=== PATIENT | male | born 1955 | race Caucasian/White ===

== ENCOUNTER 2019-04-22 11:56 | Emergency (ER) | payer BC, SELFPAY ==
[2019-04-22 12:06] VITALS: BP 163/88; PULSE 96; RESP 18; TEMP 36; O2SAT 97
[2019-04-22] MEDS: LORazepam 0.5 MG TAB PO (13:23)
[2019-04-22 13:35] LABS: Abs Immature Grans 0.12 k/cumm (0.0-0.09); Absolute Basophil Count 0.02 k/cumm (0.0-0.2); Absolute Lymphocyte Count 1.17 k/cumm (1.2-3.4); Absolute Monocyte Count 0.62 k/cumm (0.11-0.7); Absolute Neutrophil Count 6.44 k/cumm (1.2-6.7); Basophils % 0.2; HCT 41.2 % (40.0-50.0); HGB 14.6 g/dL (13.5-17.5); Immature Grans % 1.4; Mean Corp. HGB Concentration 35.4 g/dL (32.0-36.0); Mean Corpuscular Hemoglobin 33.6 pg (27.0-33.0); Mean Corpuscular Volume 94.9 fL (80-95); Monocytes % 7.4; Platelet Count 275 x1000/uL (130-400); RBC 4.34 m/cumm (4.50-6.00); RBC Distribution Width 12.7 % (11.8-14.1); White Blood Cell Count 8.37 k/cumm (4.4-10.8)
[2019-04-22 13:46] LABS: ALT 38 U/L (12-78); AST 20 U/L (15-37); Alkaline Phosphatase 61 U/L (46-116); Anion Gap 12.4 mmol/L (3-11); BUN 14 mg/dL (7-18); Bilirubin, Total 0.5 mg/dL (0.2-1.0); CO2 23.6 mmol/L (21.0-32.0); CREATININE 0.84 mg/dL (0.70-1.30); Calcium 8.6 mg/dL (8.5-10.1); Chloride 101 mmol/L (98-107); Glucose 121 mg/dL (70-100); Potassium 3.8 mmol/L (3.5-5.1); Sodium 137 mmol/L (136-145); Total Protein 7.4 g/dL (6.4-8.2)
--- NOTE | 2019-04-22 14:18 | ED.GENADUL_ITS ---
Discharge Plan Disposition Patient Disposition: HOME Condition: Stable Discharge Details Chief Complaint: Anxiety Clinical Impression: Adverse effects of medication Primary Care Provider: Graciela,Local ED Provider: Yonathan Peter Home Meds and New Rx's Prescriptions: New lorazepam [Ativan] 0.5 mg tablet 0.5 mg PO Q8H PRN (Reason: anxiety) Qty: 3 RF: 0 Continued amlodipine 10 MG tablet 10 mg PO DAILY RF: 0 montelukast 10 MG tablet 10 mg PO DAILY RF: 0 magnesium chloride [Mag 64] 64 MG tablet,delayed release (DR/EC) 1 tab PO DAILY RF: 0 hydrochlorothiazide 12.5 mg Tablet 12.5 mg PO DAILY RF: 0 Discontinued prednisone 10 mg Tablet 10 mg PO DAILY RF: 0 Discharge Instructions Instructions: Prednisone (By mouth) Additional Instructions: Feel free to return to the emergency department for any new or significant worsening of symptoms otherwise you should take 5 mg of prednisone tomorrow morning and the next morning and then stop this medication. Also stop the jjwr-[id number] medication that you have been taking as this may also have caused your symptoms. Follow-up with your primary care provider for reassessment and any change in long-term medications as needed Referrals: Primary Care Provider [Outside] Discharge Data Discharge Date/Time-TO BE ENTERED AT DEPARTURE: 04/22/19 14:35 Medical Decision Making Patient presenting the emergency department for chief complaint of anxiety, and agitation. Patient states that he has severe seasonal allergies and sees an service observer chief in [place] and has been prescribed prednisone due to his allergies. Patient arrived in the area on Monday and had not taken any prednisone for 3 to 4 days and then started taking this prednisone 10 mg once or twice daily and is taken 10 mg just in the morning for the past 2 days. Since starting the prednisone he has noticed severe anxiety, agitation, irritability and mood swings. Patient denies any pain or discomfort or any medical complaints at this time. Physical exam is unremarkable. Patient does state that he has not taken his prednisone as prescribed as he has used it intermittently, sometimes in the morning and night, sometimes 3 tablets a day, sometimes 2 tablets a day. He does also state that he has been using an [id number] allergy/ congestion medication but is not sure exactly which one, he states he just calls it Mucinex. Plan to check labs due to intermittent use of prednisone and concern for adrenal suppression but more suspect this adverse effect from steroid. Pending results patient given 0.5 mg of Ativan. Review of labs shows non-worrisome CBC and CMP with no hyponatremia, no hypokalemia, no hypoglycemia no hypotension. Patient does have mildly elevated anion gap but otherwise nondiagnostic labs. Patient states that he feels significantly better after receiving medication. Patient was informed that he should taper his prednisone over the next couple days and given that he stated 10 mg daily for the last 2 to 3 days he was informed to use 5 mg daily for the next 2 days and then stop this medication. Patient to return the emergency department for new or worsening symptoms otherwise follow-up with primary care provider as needed for reassessment. Patient was prescribed 3 tablets of 0.5 mg of Ativan to be used as needed. After discussion of diagnosis and plan of care patient has no further needs, questions, or concerns and states clear understanding to return to the emergency department for any worsening symptoms. HPI General Mode of arrival: ambulatory . Date/Time Provider Initiated Documentation: 04/22/19 12:19 . Limitations to Documentation: no limitations . Information obtained by: patient, family and RN notes reviewed . History of Present Illness 63 year old M presents to the emergency department with the chief complaint of anxiety, described as moderate, Quality is described as other (denies pain), Patient started experiencing this day(s) (3) and it has been intermittent. No relieving factors improve symptom(s), Patient notes no other symptoms.. Patient did receive the following treatments prior to arrival, none Related Data Home Medications Medication Instructions Recorded Confirmed amlodipine 10 mg PO DAILY 10/30/16 04/22/19 magnesium chloride [Mag 64] 1 tab PO DAILY 10/30/16 04/22/19 montelukast 10 mg PO DAILY 10/30/16 04/22/19 hydrochlorothiazide 12.5 mg PO DAILY 04/22/19 04/22/19 lorazepam [Ativan] 0.5 mg PO Q8H PRN #3 tab 04/22/19 Previous Rx's Medication Instructions Recorded lorazepam [Ativan] 0.5 mg PO Q8H PRN #3 tab 04/22/19 Allergies Allergy/AdvReac Type Severity Reaction Status Date / Time No Known Allergies Allergy Unverified 04/22/19 12:10 General Stated Complaint: Anxiety AGUSTIN: 4 Review of Systems Constitutional Denies fever(s) Cardiovascular Denies chest pain, Denies irregular heart rhythm and Denies dyspnea Respiratory Denies cough and Denies dyspnea Gastrointestinal Denies abdominal pain, Denies diarrhea, Denies nausea and Denies vomiting Neurologic Denies behavioral changes Psychiatric Reports as per HPI, Reports anxiety, Denies behavioral changes, Denies change in appetite, Denies auditory hallucinations, Denies visual hallucinations, Denies homicidal ideation and Denies suicidal ideation [facility] Social History Smoking/Tobacco Use Status: Current-Occasional Tobacco Type: cigars Drug use: Never Substance use type: does not use Do you feel safe in your relationship?: Yes Exam Const General: cooperative Orientation: alert, awake and oriented x3 Limitations: mental status not altered HENMT Head: normal to inspection, normocephalic and atraumatic Ears: hearing grossly normal bilaterally Mouth: moist mucous membranes Eyes General: appearance normal, both eyes and all related structures Pupils: PERRL EOM: EOM intact bilaterally Resp Effort & Inspection: normal respiratory effort, able to speak in complete sentences and no respiratory distress Auscultation: clear to auscultation bilaterally Cardio Rate: regular rate and not tachycardic Rhythm: regular rhythm Heart Sounds: S1 normal, S2 normal, no click, no gallops, no murmurs and no rubs Neuro General: alert, awake, oriented x3, gait normal, moves all extremities and no focal motor deficits Cognition: normal cognition Speech: speech normal Psych Appearance: grossly normal Mental Status: mental status grossly normal Speech and Movement: speech and movement normal and speech clear Mood: congruent mood Affect: normal affect Attitude: cooperative Thought Process: normal Thought Content: normal Insight: insight good Judgment: judgment good Course Vital Signs Temperature 36 C L 04/22/19 12:06 Pulse 96 H 04/22/19 12:06 Respiratory Rate 18 04/22/19 12:06 Blood Pressure 163/88 H 04/22/19 12:06 Pulse Oximetry 97 04/22/19 12:06 Temperature 36 C L 04/22/19 12:06 Temperature Source Skin 04/22/19 12:06 Pulse 96 H 04/22/19 12:06 Respiratory Rate 18 04/22/19 12:06 Respiratory Effort Non-Labored 04/22/19 12:12 Respiratory Depth Normal 04/22/19 12:12 Respiratory Pattern Normal 04/22/19 12:12 Blood Pressure 163/88 H 04/22/19 12:06 Pulse Oximetry 97 04/22/19 12:06 Oxygen Delivery Method Room Air 04/22/19 12:06 Oxygen Flow Rate 0 04/22/19 12:06 Pain Level 0 04/22/19 12:06 Lab/Test Results Lab/Test Results: Laboratory Tests Range/Units 04/22/19 04/22/19 13:26 13:26 WBC (4.4-10.8) k/cumm 8.37 RBC (4.50-6.00) m/cumm 4.34 L Hgb (13.5-17.5) g/dL 14.6 Hct (40.0-50.0) % 41.2 MCV (80-95) fL 94.9 MCH (27.0-33.0) pg 33.6 H MCHC (32.0-36.0) g/dL 35.4 RDW (11.8-14.1) % 12.7 Plt Count (130-400) x1000/uL 275 MPV (8.0-11.0) fL 10.0 Immature Gran % 1.4 Neutrophils % 77.0 Lymphocytes % 14.0 Monocytes % 7.4 Eosinophils % 0.0 Basophils % 0.2 Absolute Neutrophils (1.2-6.7) k/cumm 6.44 Absolute Lymphocytes (1.2-3.4) k/cumm 1.17 L Absolute Monocytes (0.11-0.7) k/cumm 0.62 Absolute Eosinophils (0.0-0.7) k/cumm 0.00 Absolute Basophils (0.0-0.2) k/cumm 0.02 Sodium (136-145) mmol/L 137 Potassium (3.5-5.1) mmol/L 3.8 Chloride (98-107) mmol/L 101 Carbon Dioxide (21.0-32.0) mmol/L 23.6 Anion Gap (3-11) mmol/L 12.4 H BUN (7-18) mg/dL 14 Creatinine (0.70-1.30) mg/dL 0.84 Estimated GFR/1.73 m2 (mL/min/1.73m2) >= 60.00 Glucose (70-100) mg/dL 121 H Calcium (8.5-10.1) mg/dL 8.6 Total Bilirubin (0.2-1.0) mg/dL 0.5 AST (15-37) U/L 20 ALT (12-78) U/L 38 Alkaline Phosphatase (46-116) U/L 61 Total Protein (6.4-8.2) g/dL 7.4 Albumin (3.4-5.0) g/dL 4.0
== END 2019-04-22 14:35 | disposition home or self-care (01) ==
PROVIDERS: Emergency Provider Nurse Practitioner Family
DX: F41.9 Anxiety disorder, unspecified (principal); T38.0X6A Underdosing of glucocorticoids and synthetic analogues, initial encounter
CPT/HCPCS: 36415; 80053; 99283; 85025

== ENCOUNTER 2021-01-28 13:04 | Emergency (ER) | payer MEDICARE, BC, SELFPAY ==
[2021-01-28 13:10] VITALS: BP 169/91; PULSE 85; RESP 18; TEMP 36.4; O2SAT 98
--- NOTE | 2021-01-28 13:30 | DI.RAD_ITS ---
EXAM: XR HIP RT COMPLETE AP PELVIS CLINICAL HISTORY: Skiing accident.. TECHNIQUE: 2D digital imaging was performed. COMPARISON: No exams were available for comparison FINDINGS: BONES: No acute fracture is present. No bony destructive lesion is seen. JOINTS: No dislocation present. Marked arthritis of the right hip. Moderately severe arthritis of th e left hip. SOFT TISSUE: Normal. IMPRESSION: No acute fracture or dislocation. DATA REPOSITORY: RADIATION DOSE DELIVERED:
--- NOTE | 2021-01-28 13:30 | DI.CT_ITS ---
EXAM: CT HEAD CERVICAL SPINE WO CLINICAL HISTORY: Skiing accident. TECHNIQUE: Imaging Protocol: Axial computed tomography images with coronal and sagittal reformatted images were created and reviewed COMPARISON: No exams were available for comparison FINDINGS: There is artifact in the posterior fossa from the patient's dental amalgam. CT Head: Ventricles and Extra axial spaces: Normal in size and morphology for the patient's age. Hemorrhage: None. Cerebral parenchyma: Normal. There is no evidence of an acute territorial infarct. Midline shift: None. Brainstem/Cerebellum: Normal. Calvarium: Normal. Visualized Paranasal sinuses/Mastoids: There are mucous retention cysts or polyps in the maxillary si nuses bilaterally. There is mild mucosal thickening in the ethmoid air cells and frontal sinuses. T he remaining visualized paranasal sinuses and mastoid air cells are clear. Soft Tissues: Unremarkable. CT Cervical Spine: Bones: No acute fracture or subluxation. Moderate to severe degenerative changes are seen in the cerv ical spine. Soft Tissues: Unremarkable. Lung Apices: Clear. IMPRESSION: 1. No acute intracranial process. 2. No acute fracture or subluxation in the cervical spine. 3. Findings were discussed with the emergency department on the date of the examination. RADIATION DOSE DELIVERED: 1,601.48mGy.cm Total DLP DATA REPOSITORY: All CT scans at this facility are submitted to the National Radiology Data Registry (NRDR) Dose Index Registry (DIR) with the [employer] (ACR). RADIATION OPTIMIZATION: All CT scans at this facility use at least one of these dose optimization te chniques: automated exposure control; mA and/or kV adjustment per patient size (includes targeted exa ms where dose is matched to clinical indication); or iterative reconstruction.
--- NOTE | 2021-01-28 13:30 | RT.EKG_ITS ---
APPROVED REPORT Exam: Resting ECG Patient Location: E HR:79 bpm ECG Measurements Heart Rate 79 AXIS WI 167 P 7 QRSd 100 QRS 47 QT 394 T 86 QTc 453 Conclusion Sinus rhythm...normal P axis, V-rate 60- 99 I have reviewed and interpreted ECG and agree with software generated interpretation.
--- NOTE | 2021-01-28 13:35 | DI.RAD_ITS ---
EXAM: XR CHEST 1V IN DI DEPT CLINICAL HISTORY: Skiing accident TECHNIQUE: 2D digital imaging was performed. COMPARISON: No exams were available for comparison FINDINGS: MEDIASTINUM: Normal. HEART: Normal. PULMONARY VASCULATURE: Normal. LUNGS: Clear. PLEURAL SPACE: No pleural effusion or pneumothorax. BONE:Within normal limits for the patient's age. OTHER FINDINGS:Normal. IMPRESSION: No acute pulmonary findings. DATA REPOSITORY: RADIATION DOSE DELIVERED:
[2021-01-28 13:59] LABS: Abs Immature Grans 0.12 10^3/uL (0.0-0.06); Absolute Basophil Count 0.05 10^3/uL (0.0-0.2); Absolute Eosinophil Count 0.11 10^3/uL (0.0-0.7); Absolute Lymphocyte Count 1.96 10^3/uL (1.2-3.4); Absolute Monocyte Count 0.65 10^3/uL (0.1-0.8); Absolute Neutrophil Count 6.55 10^3/uL (1.2-6.7); Basophils % 0.5; Eosinophils % 1.2; HCT 42.1 % (40.0-50.0); HGB 14.2 g/dL (13.5-17.5); Immature Grans % 1.3; Lymphocytes % 20.8; MCH 32.1 pg (27.0-33.0); MCHC 33.7 % (32.0-36.0); MCV 95.2 fL (80-95); MPV 10.1 fL (8.0-11.0); Monocytes % 6.9; Neutrophils % 69.3; Nucleated RBC 0 %; Platelet Count 302 10^3/uL (130-400); RBC 4.42 10^6/uL (4.36-5.78); RDW 12.3 % (11.8-14.1); RDW-SD 43.2 fL; WBC 9.44 10^3/uL (4.4-10.8)
--- NOTE | 2021-01-28 14:05 | W.ED.GENAD ---
Discharge Plan Disposition Patient Disposition: HOME Condition: Stable Discharge Details Clinical Impression: Head injury, closed, with LOC of unknown duration Primary Care Provider: Graciela,Local ED Provider: John Rasmussen Home Meds and New Rx's Prescriptions: Continued amlodipine 10 MG tablet 10 mg PO DAILY RF: 0 montelukast 10 MG tablet 10 mg PO DAILY RF: 0 magnesium chloride [Mag 64] 64 MG tablet,delayed release (DR/EC) 1 tab PO DAILY RF: 0 hydrochlorothiazide 12.5 mg Tablet 12.5 mg PO DAILY RF: 0 lorazepam [Ativan] 0.5 mg tablet 0.5 mg PO Q8H PRN (Reason: anxiety) Qty: 3 RF: 0 Discharge Instructions Instructions: Head Injury (ED) Additional Instructions: At this time your evaluation in the ER does not reveal any obvious emergent process. Please watch for new or worsening symptoms and return to the ER for any concerns. [id number] Tylenol as directed for discomfort. Cool compresses as tolerated. I do understand that you are here in the short-term visiting from [place], I do strongly recommend following up with your primary care provider when you return home to [place]. Medical Decision Making This is a 65-year-old male who presents status post a skiing injury. He tells me that he recalls the skis getting tangled up but cannot recall exactly why he fell. He does not believe he was symptomatic prior to the injury. The accident occurred around 1030 this morning. He was wearing a helmet but from what his friend tells him he believes he had a less than 90 seconds LOC. Patient was able to ski after the accident. He complains of a mild dull global headache now, and mild right hip-pelvis discomfort. Patient is up here for the next few weeks from [place] where he has primary care. This certainly sounds as though this was mechanical in nature however because he cannot recall the exact details, I do believe a cardiac work-up is reasonable. Will obtain CT imaging of his head and C-spine, x-ray of the chest and pelvis. Patient appears well, nontoxic, no acute distress. He is neurologically intact. The injury occurred at 1030 and therefore I believe a single troponin is reasonable given his initial troponin here in the ER will be drawn 3 hours [address] the episode. CT imaging of the head and C-spine read as negative per radiology. C-collar removed. Patient was ambulatory without difficulty. He remains neurologically intact, blood pressure is trending downward. Laboratory values are unremarkable for any obvious emergent process, troponin is less than 0.05. X-ray of chest and pelvis read by radiology is unremarkable. Patient was observed in the ER for over 2-1/2 hours. He remains neurologically intact. Patient has no additional concerns or complaints. Again given the timing of his symptoms and presentation to the ER, I do not believe it is prudent to have the patient continue to be observed in the ER for a repeat troponin. We discussed the importance of returning to the ER for new or worsening symptoms, otherwise he will follow up in [place] when he returns home. We discussed the importance of not returning to any strenuous or physical activities until he is completely asymptomatic. Even then, practice extreme caution. Patient is comfortable with this plan and has no additional questions or concerns upon discharge. Upon discharge he ambulates without difficulty. Medical Records Medical records reviewed: Yes I reviewed the patient's medical records. Lab Data Lab results reviewed: Yes I reviewed the patient's lab results. Labs: 01/28/21 15:00 Urine - Reflex from Ua Urine Culture - Pending Laboratory Tests Range/Units 01/28/21 01/28/21 01/28/21 13:50 13:50 13:50 WBC (4.4-10.8) 10^3/uL 9.44 RBC (4.36-5.78) 10^6/uL 4.42 Hgb (13.5-17.5) g/dL 14.2 Hct (40.0-50.0) % 42.1 MCV (80-95) fL 95.2 H MCH (27.0-33.0) pg 32.1 MCHC (32.0-36.0) % 33.7 RDW (11.8-14.1) % 12.3 Plt Count (130-400) 10^3/uL 302 MPV (8.0-11.0) fL 10.1 Immature Gran % 1.3 Neutrophils % 69.3 Lymphocytes % 20.8 Monocytes % 6.9 Eosinophils % 1.2 Basophils % 0.5 Nucleated RBC % % 0 Absolute Neutrophils (1.2-6.7) 10^3/uL 6.55 Absolute Lymphocytes (1.2-3.4) 10^3/uL 1.96 Absolute Monocytes (0.1-0.8) 10^3/uL 0.65 Absolute Eosinophils (0.0-0.7) 10^3/uL 0.11 Absolute Basophils (0.0-0.2) 10^3/uL 0.05 PT (9.3-11.0) sec 10.8 INR (0.9-1.1) 1.1 APTT (21.0-27.5) sec 23.2 Sodium (136-145) mmol/L 139 Potassium (3.5-5.1) mmol/L 3.5 Chloride (98-107) mmol/L 102 Carbon Dioxide (21.0-32.0) mmol/L 27.8 Anion Gap (3-11) mmol/L 9.2 BUN (7-18) mg/dL 17 Creatinine (0.70-1.30) mg/dL 0.9 Estimated GFR/1.73 m2 (mL/min/1.73m2) >= 60.00 Glucose (74-106) mg/dL 164 H Calcium (8.5-10.1) mg/dL 8.4 L Magnesium (1.8-2.4) mg/dL 2.0 Total Bilirubin (0.2-1.0) mg/dL 0.5 AST (15-37) U/L 19 ALT (16-63) U/L 41 Alkaline Phosphatase (46-116) U/L 77 Troponin I (<0.06) ng/mL < 0.05 Total Protein (6.4-8.2) g/dL 6.9 Albumin (3.4-5.0) g/dL 3.7 Lipase (73-393) U/L 138 Urine Color (Yellow) Urine Clarity (Clear) Urine pH (5-8) Ur Specific [place] (1.005-1.025) Urine Protein (Negative) mg/dL Urine Ketones (Negative) mg/dL Urine Blood (Negative) Urine Nitrite (Negative) Urine Bilirubin (Negative) Urine Urobilinogen (Up TO 0.2) EU/dL Ur Leukocyte Esterase (Negative) Urine RBC (0-2) HPF Urine WBC (0-5) HPF Ur Epithelial Cells (Negative) HPF Urine Crystals (Negative) HPF Urine Bacteria (Negative) HPF Urine Casts (Negative) LPF Urine Mucus (Negative) Urine Other (Negative) Ur Culture Indicated? Urine Glucose (Negative) mg/dL Range/Units 01/28/21 15:00 WBC (4.4-10.8) 10^3/uL RBC (4.36-5.78) 10^6/uL Hgb (13.5-17.5) g/dL Hct (40.0-50.0) % MCV (80-95) fL MCH (27.0-33.0) pg MCHC (32.0-36.0) % RDW (11.8-14.1) % Plt Count (130-400) 10^3/uL MPV (8.0-11.0) fL Immature Gran % Neutrophils % Lymphocytes % Monocytes % Eosinophils % Basophils % Nucleated RBC % % Absolute Neutrophils (1.2-6.7) 10^3/uL Absolute Lymphocytes (1.2-3.4) 10^3/uL Absolute Monocytes (0.1-0.8) 10^3/uL Absolute Eosinophils (0.0-0.7) 10^3/uL Absolute Basophils (0.0-0.2) 10^3/uL PT (9.3-11.0) sec INR (0.9-1.1) APTT (21.0-27.5) sec Sodium (136-145) mmol/L Potassium (3.5-5.1) mmol/L Chloride (98-107) mmol/L Carbon Dioxide (21.0-32.0) mmol/L Anion Gap (3-11) mmol/L BUN (7-18) mg/dL Creatinine (0.70-1.30) mg/dL Estimated GFR/1.73 m2 (mL/min/1.73m2) Glucose (74-106) mg/dL Calcium (8.5-10.1) mg/dL Magnesium (1.8-2.4) mg/dL Total Bilirubin (0.2-1.0) mg/dL AST (15-37) U/L ALT (16-63) U/L Alkaline Phosphatase (46-116) U/L Troponin I (<0.06) ng/mL Total Protein (6.4-8.2) g/dL Albumin (3.4-5.0) g/dL Lipase (73-393) U/L Urine Color (Yellow) Yellow Urine Clarity (Clear) Clear Urine pH (5-8) 7.0 Ur Specific [place] (1.005-1.025) 1.020 Urine Protein (Negative) mg/dL Negative Urine Ketones (Negative) mg/dL Negative Urine Blood (Negative) Negative Urine Nitrite (Negative) Negative Urine Bilirubin (Negative) Negative Urine Urobilinogen (Up TO 0.2) EU/dL 0.2 Ur Leukocyte Esterase (Negative) Trace H Urine RBC (0-2) HPF 0-2 Urine WBC (0-5) HPF 0-2 Ur Epithelial Cells (Negative) HPF Negative Urine Crystals (Negative) HPF Negative Urine Bacteria (Negative) HPF Negative Urine Casts (Negative) LPF Negative Urine Mucus (Negative) Negative Urine Other (Negative) Negative Ur Culture Indicated? Yes Urine Glucose (Negative) mg/dL Negative ECG Data Attestation: I personally reviewed and interpreted this ECG (s) as follows: Interpretation: Please see official report by Dr. Castro. Sinus rhythm, ventricular rate of 79. No STEMI. HPI General Mode of arrival: ambulatory. Date/Time Provider Initiated Documentation: 01/28/21 13:05. Limitations to Documentation: no limitations. Information obtained by: patient. HPI Narrative: This is a 65-year-old gentleman, past medical history that includes hypertension, presenting to the ER today for evaluation status post a skiing accident. Patient reports that around 1030 this morning while skiing, wearing a helmet, he crashed. He denies any symptoms prior to the crash but cannot recall the exact details of why he crashed. He jammed his goggles into his face sustaining an abrasion and does report positive LOC. A friend who was present reports for probably 90 seconds or so. Patient reports a mild global headache, and was nauseous and dizzy at the time of the accident but this symptoms are much improved now. He tells me that his right hip is slightly sore but he was able to ski after the accident. He denies any visual changes, neck pain, chest pain, shortness of breath, abdominal pain, vomiting, incontinence, numbness, tingling, weakness. Related Data Home Medications Medication Instructions Recorded Confirmed amlodipine 10 mg PO DAILY 10/30/16 01/28/21 magnesium chloride [Mag 64] 1 tab PO DAILY 10/30/16 01/28/21 montelukast 10 mg PO DAILY 10/30/16 01/28/21 hydrochlorothiazide 12.5 mg PO DAILY 04/22/19 01/28/21 lorazepam [Ativan] 0.5 mg PO Q8H PRN #3 tab 04/22/19 01/28/21 Previous Rx's Medication Instructions Recorded lorazepam [Ativan] 0.5 mg PO Q8H PRN #3 tab 04/22/19 Allergies Allergy/AdvReac Type Severity Reaction Status Date / Time No Known Allergies Allergy Unverified 01/28/21 13:12 General Stated Complaint: Trauma AGUSTIN: 2 Review of Systems Constitutional Constitutional: Denies fatigue, Reports headache(s) and Denies weakness Eyes Eyes: Denies change in vision ENT Ears, Nose, Mouth, and Throat: Reports headache(s) and Denies neck pain Cardiovascular Cardiovascular: Denies chest pain and Denies dyspnea Respiratory Respiratory: Denies cough and Denies dyspnea Gastrointestinal Gastrointestinal: Denies abdominal pain, Reports nausea and Denies vomiting Genitourinary Genitourinary: Denies urinary incontinence Musculoskeletal Musculoskeletal: Reports back pain, Denies neck pain, Denies numbness and Denies tingling Integumentary/Breasts Skin/Breast: Denies rash Neurologic Neurologic: Reports headache(s), Denies numbness, Denies tingling and Denies weakness Endocrine Endocrine: Denies fatigue Hematologic/Lymphatic Hematologic/Lymphatic: Denies easy bleeding and Denies easy bruising PFSH Social History Smoking/Tobacco Use Status: Current-Occasional Tobacco Type: cigars Smoking risk assessment performed?: Yes Drug use: Never Substance use type: does not use Do you feel safe at home: Yes Do you feel safe in your relationship?: Yes Exam Const General: cooperative, healthy appearing, comfortable and no acute distress Orientation: alert, awake and oriented x3 HENMT Head: normal to inspection, no palpable skull fracture, normocephalic and atraumatic Ears: external ears normal, TM's normal bilaterally and EAC's normal Face images: 1. Abrasion 2. Abrasion Mouth: oral mucosae normal and moist mucous membranes Throat: posterior oropharynx normal Eyes General: appearance normal, both eyes and all related structures Alignment and Position: alignment normal Periorbital: periorbital findings normal Eyelids: eyelids normal Conjunctivae: conjunctivae normal Sclera: sclerae normal Cornea: corneas normal Pupils: PERRL EOM: EOM intact bilaterally Direct ophthalmoscopy: normal light reflex Neck Neck: normal visual inspection, trachea midline, supple, nontender and other (Patient was placed into a hard c-collar) Chest Chest: normal inspection of the chest Resp Effort & Inspection: normal respiratory effort and able to speak in complete sentences Auscultation: clear to auscultation bilaterally Cardio Rate: regular rate Rhythm: regular rhythm GI Inspection: normal to inspection Palpation: soft, not firm, no guarding and nontender Back/Spine/Pelvis Back: No back tenderness Skin General skin exam: no rashes or lesions noted Neuro General: patient alert, patient awake, patient oriented x3, moves all extremities and no focal motor deficits Cranial Nerves: CN's II-XI intact bilaterally Cognition: normal cognition Speech: speech normal Gait: normal gait Motor: muscle tone normal throughout and strength 5/5 throughout Sensory Exam: no sensory deficits noted Extrem General: normal to inspection, full ROM and capillary refill normal Psych Appearance: grossly normal Mental Status: mental status grossly normal Course Vital Signs Vital signs: Vital Signs Temperature 36.4 C L 01/28/21 13:10 Pulse 85 01/28/21 13:10 Respiratory Rate 18 01/28/21 13:10 Blood Pressure 169/91 H 01/28/21 13:10 Pulse Oximetry 98 01/28/21 13:10 Temperature 36.4 C L 01/28/21 13:10 Temperature Source Temporal Artery Scan 01/28/21 13:10 Pulse 85 01/28/21 13:10 Respiratory Rate 18 01/28/21 13:10 Respiratory Effort Non-Labored 01/28/21 13:13 Respiratory Depth Normal 01/28/21 13:13 Respiratory Pattern Normal 01/28/21 13:13 Blood Pressure 169/91 H 01/28/21 13:10 Blood Pressure Position Sitting 01/28/21 13:10 Pulse Oximetry 98 01/28/21 13:10 Oxygen Delivery Method Room Air 01/28/21 13:10 Oxygen Flow Rate 0 01/28/21 13:10 Pain Level 0 01/28/21 13:10 Lab/Test Results Lab/Test Results: Laboratory Tests Range/Units 01/28/21 13:50 WBC (4.4-10.8) 10^3/uL 9.44 RBC (4.36-5.78) 10^6/uL 4.42 Hgb (13.5-17.5) g/dL 14.2 Hct (40.0-50.0) % 42.1 MCV (80-95) fL 95.2 H MCH (27.0-33.0) pg 32.1 MCHC (32.0-36.0) % 33.7 RDW (11.8-14.1) % 12.3 Plt Count (130-400) 10^3/uL 302 MPV (8.0-11.0) fL 10.1 Immature Gran % 1.3 Neutrophils % 69.3 Lymphocytes % 20.8 Monocytes % 6.9 Eosinophils % 1.2 Basophils % 0.5 Nucleated RBC % % 0 Absolute Neutrophils (1.2-6.7) 10^3/uL 6.55 Absolute Lymphocytes (1.2-3.4) 10^3/uL 1.96 Absolute Monocytes (0.1-0.8) 10^3/uL 0.65 Absolute Eosinophils (0.0-0.7) 10^3/uL 0.11 Absolute Basophils (0.0-0.2) 10^3/uL 0.05
--- OUTSIDE RECORDS SUMMARY | 2021-01-28 14:05 | XMS_ITS ---
:1955 Author Care Team Providers Name Role Phone VANITA ESQUIVEL Primary Care Provider [phone] Allergies Code Code System Name Reaction Severity Status Onset Iodinated Hives Mild to Active ? Contrast Media Moderate NKDA ? Notes: CT Scan Dye, Grass, Ragwe ek, Trees, Mold Medications Name Status Start Date Stop Date ? ? Afluria 4920-5520 (PF) 45 mcg (15 mcg x Completed ? 11/01/2016 3)/0.5 mL IM syringe Afluria Quad 2397-2451 60 mcg (15 mcg x Active ? Not available 4)/0.5 mL IM suspension amlodipine 10 mg tablet Active ? Not avai lable amoxicillin 875 mg-potassium Active ? Not available clavulanate 125 mg tablet benzonatate 200 mg capsule Active ? Not a vailable cefuroxime axetil 250 mg tablet Active ? Not available dexamethasone 2 mg tablet Completed ? 2015 Fluarix Quad 1898-8779 (PF) 60 mcg (15 Completed ? 11/01/2016 mcg x 4)/0.5 mL IM syringe fluocinonide 0.05 % topical cream Active ? Not available fluticasone propionate 50 mcg/actuation Active ? Not available nasal spray,suspension gabapentin 300 mg capsule Completed ? 2016 Take 1 capsule twice a day by oral route. hydrochlorothiazide 12.5 mg tablet Active ? Not available ibuprofen 600 mg tablet Active ? Not avai lable levofloxacin 750 mg tablet Completed ? 11/01 lorazepam 0.5 mg tablet Active ? Not avai lable meloxicam 7.5 mg tablet Completed ? 11/01/20 16 methocarbamol 750 mg tablet Active ? Not available methylprednisolone 4 mg tablets in a Active ? Not available dose pack montelukast 10 mg tablet Active ? Not herbert ilable oxycodone 5 mg tablet Completed ? 11/17/2016 oxycodone-acetaminophen 5 mg-325 mg Completed ? 12/15/2016 tablet Percocet Completed ? 12/15/2016 prednisone 10 mg tablet Active ? Not avai lable ProAir HFA 90 mcg/actuation aerosol Active ? Not available inhaler Suprep Bowel Prep Kit 17.5 gram-3.13 Active ? Not available gram-1.6 gram oral solution Problems Name Status Onset Date Source ? Lumbar Radiculopathy Active 10/31/2016 ? Hypertensive Disorder Active 11/01/2016 ? Arthritis Active 11/01/2016 ? Procedures Date Name Performed by ? 11/02/2016 Back Surgery Information not avai lable Notes: Re-exploration wit h further hemilaminectomy, medial facetectomy at the L5-S1 level Dr. Ye 10/24/2015 Back Surgery Information not avai lable Notes: Left Hemilaminecto my, Medial Facetectomy, Foraminotomy with undercutting of the spinous process at the L4-L5 level with bilateral decompression, with foraminotomies over the L4-L5 nerve roots [facility] ? Hernia Repair Information not avai lable Notes: x 2 ? Other Information not avai lable Notes: x2 Sinus Surgeries for polyps ? Shoulder Surgery Information not avai lable Notes: x2 Shoulder Surgeries ? Back Surgery Information not avai lable Notes: Lumbar Surgery Dr. Doshi 2 002 10/31/2016 MRI, Lumbar Spine, W/wo Contrast [facility] - [address] [place], [place] [address] (Work [address]) Results Lab Results None recorded. Past Encounters None recorded. Social History Tobacco Smoking Status Current Some Day Smoker Notes: 2 c igars 2-3 times weekly Vaccine List None recorded. Plan of Care Reminders Provider Appointments None ? ? recorded. Lab None ? ? recorded. Referral None ? ? recorded. Procedures None ? ? recorded. Surgeries None ? ? recorded. Imaging None ? ? recorded. Vitals 02/09/2017 02:15PM RECHECK Height 6 ft 1 in 12/15/2016 09:45AM POST OP Height 6 ft 1 in 11/17/2016 02:15PM RECHECK Height 6 ft 1 in 10/31/2016 04:00PM RECHECK 30 Height Weight BMI 6 ft 1 in 220 lbs 29 kg/m2
[2021-01-28 14:13] LABS: INR 1.1 (0.9-1.1); PTT Activated 23.2 sec (21.0-27.5); Prothrombin Time 10.8 sec (9.3-11.0)
[2021-01-28 14:17] LABS: ALT 41 U/L (16-63); AST 19 U/L (15-37); Albumin 3.7 g/dL (3.4-5.0); Alkaline Phosphatase 77 U/L (46-116); Anion Gap 9.2 mmol/L (3-11); BUN 17 mg/dL (7-18); Bilirubin, Total 0.5 mg/dL (0.2-1.0); CO2 27.8 mmol/L (21.0-32.0); CREATININE 0.9 mg/dL (0.70-1.30); Calcium 8.4 mg/dL (8.5-10.1); Chloride 102 mmol/L (98-107); Glucose 164 mg/dL (74-106); Lipase 138 U/L (73-393); Potassium 3.5 mmol/L (3.5-5.1); Sodium 139 mmol/L (136-145); Total Protein 6.9 g/dL (6.4-8.2)
[2021-01-28 14:18] LABS: Troponin I < 0.05 ng/mL (<0.06)
[2021-01-28 15:16] LABS: Bilirubin Negative (Negative); Blood Negative (Negative); Clarity Clear (Clear); Glucose Negative (Negative); Ketones Negative (Negative); Leukocyte Esterase Trace (Negative); Nitrite Negative (Negative); Urobilinogen 0.2 EU/dL (Up TO 0.2)
[2021-01-28 15:26] VITALS: BP 143/81; PULSE 77; RESP 18; O2SAT 96
[2021-01-28 15:37] LABS: Bacteria Negative HPF (Negative); C & S Indicated? Yes; Casts Negative LPF (Negative); Crystals Negative HPF (Negative); Epithelial Cells Negative HPF (Negative); Mucus Negative (Negative); Other Cells Negative (Negative); RBC 0-2 HPF (0-2); WBC 0-2 HPF (0-5)
== END 2021-01-28 15:44 | disposition home or self-care (01) ==
PROVIDERS: Emergency Provider Physician Assistant
DX: S06.9X1A Unspecified intracranial injury with loss of consciousness of 30 minutes or less, initial encounter (principal); W00.0XXA Fall on same level due to ice and snow, initial encounter; Y93.23 Activity, snow (alpine) (downhill) skiing, snowboarding, sledding, tobogganing and snow tubing; M25.551 Pain in right hip; R10.2 Pelvic and perineal pain
CPT/HCPCS: 80053; 83690; 93005; 99284; 70450; 71045; 72125; 73502; 81003; 81015; 83735; 84484; 85025; 85610; 85730; 87086; 93010; 99283

== ENCOUNTER 2021-11-26 14:30 | Outpatient (REF) | payer MEDICARE, BC, SELFPAY ==
[2021-11-27 10:53] LABS: COVID-19 RT-PCR UVMMC Result Negative (Negative)
== END 2021-11-26 14:31 | disposition home or self-care (01) ==
LOC: LBN 14:30
PROVIDERS: Visit Provider Physician Assistant
DX: R19.7 Diarrhea, unspecified (principal); Z20.822 Contact with and (suspected) exposure to COVID-19
CPT/HCPCS: U0003; U0005

== ENCOUNTER 2021-11-27 10:15 | Outpatient (REF) | payer MEDICARE, BC, SELFPAY ==
[2021-11-28 23:05] LABS: Salmonella PCR Negative (Negative); Shiga Toxin PCR Negative (Negative); Shigella/Enteroinvasive Ecoli Negative (Negative)
[2021-11-29 11:55] LABS: Campylobacter PCR Positive (Negative)
== END 2021-11-27 10:16 | disposition home or self-care (01) ==
LOC: LBN 10:15
PROVIDERS: Visit Provider Physician Assistant
DX: R19.7 Diarrhea, unspecified (principal)
CPT/HCPCS: 87505; 87177

== ENCOUNTER 2023-01-30 13:47 | Emergency (ER) | payer MEDICARE, BC, SELFPAY ==
[2023-01-30 13:59] VITALS: BP 148/83; PULSE 64; RESP 20; TEMP 36.5; O2SAT 97
--- NOTE | 2023-01-30 15:15 | DI.RAD_ITS ---
Exam(s) XR FEMUR RT EXAM: XR FEMUR RT CLINICAL HISTORY: twisted R leg while skiing, r/o fx. TECHNIQUE: 2D digital imaging was performed. AP and lateral views. COMPARISON: No exams were available for comparison FINDINGS: BONES: No acute fracture is present. No bony destructive lesion is seen. JOINTS: Degenerative changes with prominent periarticular spurring involving the hip joint. No visib le joint effusion. SOFT TISSUE: Chronic appearing densities seen in in the suprapatellar region. Enthesophyte at the up per pole of the patella. IMPRESSION: Degenerative changes. No acute abnormality. DATA REPOSITORY: RADIATION DOSE DELIVERED:
--- NOTE | 2023-01-30 15:29 | W.ED.GENAD ---
Discharge Plan Disposition Patient Disposition: Home Condition: Stable Discharge Details Clinical Impression: Muscle strain of right thigh ED Provider: Kayleen Castro Home Meds and New Rx's Prescriptions: Continued atorvastatin [Lipitor] 10 mg tablet 10 mg PO DAILY fluoxetine 10 mg capsule 10 mg PO DAILY Qty: 1 0RF amlodipine 10 MG tablet 10 mg PO DAILY Mag 64 64 MG tablet,delayed release (DR/EC) 1 tab PO DAILY hydrochlorothiazide 12.5 mg Tablet 12.5 mg PO DAILY lorazepam [Ativan] 0.5 mg tablet 0.5 mg PO Q8H PRN (Reason: anxiety) Qty: 3 0RF Discharge Instructions Instructions: Muscle Strain (ED) Additional Instructions: Your x-ray today showed chronic appearing degenerative changes but no acute findings. Your symptoms may be secondary to a strain in your thigh muscles but also could be secondary to a tendon or ligament injury in your thigh. It is recommended to rest, ice and elevate your right leg as much as possible. Wear the knee immobilizer and use the crutches as much as possible for ambulation. Alternate tylenol and motrin as needed and directed for pain. You were given orthopedic follow-up information if your symptoms do not improve or worsen in the next week. Return immediately to the emergency department if you develop any worsening or new concerning symptoms. Referrals: Loy Capps MD [ [facility] STAFF PHYSICIAN] - Discharge Data Discharge Date/Time-TO BE ENTERED AT DEPARTURE: 01/30/23 17:55 Discharge Physician: Kayleen Castro Medical Decision Making 67-year-old male presents with right thigh pain after he feels he twisted his right thigh while skiing when attempting to get off the chairlift this morning. Patient has tenderness to palpation to his right anterior thigh but it appears normal to inspection. The pain in his right thigh is reproducible with flexing his right hip with knee extended. He has no pain in the right hip or knee with range of motion or tenderness to palpation in the right knee or hip. His right lower extremity distal pulses are intact. No focal deficits. He has no tenderness to palpation to the right ankle or foot. Suspect most likely thigh strain. Will obtain a right femur x-ray to rule out bony injury. We will give a dose of ibuprofen. X-ray reviewed and notes degenerative changes but no acute findings. Discussed with patient that his symptoms could be due to a muscle strain in his right thigh however other possibilities include tendon or ligament injury. Recommended to place a knee immobilizer but patient would like to take this for home. Also recommended to place patient on orthopedic follow-up list but he is declining stating he would rather wait and see as he is from [place] and will be traveling back to there in the next couple weeks. Patient advised to rest, ice and elevate his right leg as much as possible. An Erasmo wrap was placed here and will give crutches and knee immobilizer for home. He is advised to alternate Tylenol and Motrin and call orthopedics for follow-up if his symptoms do not improve or worsen. Usual and customary return precautions given prior to discharge. Medical Records Medical records reviewed: Yes I reviewed the patient's medical records. Imaging Data Radiologic Study: Radiologist's impression: XR FEMUR RT CLINICAL HISTORY:? twisted R leg while skiing, r/o fx. TECHNIQUE:? 2D digital imaging was performed.? AP and lateral views. COMPARISON:? No exams were available for comparison FINDINGS: BONES: No acute fracture is present. No bony destructive lesion is seen. JOINTS: Degenerative changes with prominent periarticular spurring involving the hip joint.? No visible joint effusion. SOFT TISSUE: Chronic appearing densities seen in in the suprapatellar region.? Enthesophyte at the upper pole of the patella.? IMPRESSION: Degenerative changes.? No acute abnormality. HPI General Mode of arrival: ambulatory. Date/Time Provider Initiated Documentation: 01/30/23 14:50. Limitations to Documentation: no limitations. Information obtained by: patient. HPI Narrative: Patient is a 67-year-old male with a history of hypertension and hyperlipidemia who presents with right thigh pain after fall while skiing at 1130 this morning. Patient states he was getting off the chairlift when his right leg became stuck and he felt like it twisted and hyper extended near the right thigh. He denies any pain in his right knee or right hip. He states he is unable to bear weight on the right leg due to pain in the right thigh. He states he was able to drive himself here and denied any significant pain. He states the pain mainly occurs when attempting to lift his right leg with flexing at the right hip while knee extended. He denies any other injuries. He took ibuprofen earlier this morning prior to skiing. [place] his injury. Related Data Home Medications Medication Instructions Recorded Confirmed amlodipine 10 mg tablet 10 mg PO DAILY 10/30/16 01/30/23 magnesium chloride 64 mg 1 tab PO DAILY 10/30/16 01/30/23 (magnesium chloride) tablet,delayed release (Mag 64) hydrochlorothiazide 12.5 mg tablet 12.5 mg PO DAILY 04/22/19 01/30/23 lorazepam 0.5 mg tablet (Ativan) 0.5 mg PO Q8H PRN anxiety #3 tabs 04/22/19 01/30/23 atorvastatin 10 mg tablet (Lipitor) 10 mg PO DAILY 02/09/21 01/30/23 fluoxetine 10 mg capsule 10 mg PO DAILY #1 cap 11/29/21 01/30/23 Previous Rx's Medication Instructions Recorded lorazepam 0.5 mg tablet (Ativan) 0.5 mg PO Q8H PRN anxiety #3 tabs 04/22/19 fluoxetine 10 mg capsule 10 mg PO DAILY #1 cap 11/29/21 Allergies Allergy/AdvReac Type Severity Reaction Status Date / Time No Known Allergies Allergy Verified 01/30/23 14:02 General Stated Complaint: Orthopedic AGUSTIN: 4 Review of Systems All systems reviewed & are unremarkable except as noted in HPI and below Constitutional Constitutional: Reports as per HPI, Denies chills and Denies fever(s) Eyes Eyes: Denies blurry vision ENT Ears, Nose, Mouth, and Throat: Denies dizziness, Denies sore throat and Denies throat swelling Cardiovascular Cardiovascular: Denies chest pain and Denies dyspnea Respiratory Respiratory: Denies cough and Denies dyspnea Gastrointestinal Gastrointestinal: Denies abdominal pain, Denies diarrhea and Denies vomiting Genitourinary Genitourinary: Denies hematuria and Denies dysuria Musculoskeletal Musculoskeletal: Denies back pain and Denies numbness Comments: right thigh pain Integumentary/Breasts Skin/Breast: Denies lesions and Denies rash Neurologic Neurologic: Denies dizziness, Denies localized weakness and Denies numbness Allergic/Immunologic Allergic/Immunologic: Denies throat swelling PFSH All Active Problems (Updated 01/30/23 @ 17:31 by Kayleen Castro DO) Muscle strain of right thigh (Acute) Head injury, closed, with LOC of unknown duration (Acute) Medical History (Updated 01/30/23 @ 17:31 by Kayleen Castro DO) HTN (hypertension) Hx of hyperlipidemia Surgical History (Updated 01/30/23 @ 15:31 by Kayleen Castro DO) H/O shoulder surgery History of back surgery History of colonoscopy with polypectomy History of hernia repair History of sinus surgery Social History Smoking/Tobacco Use Status: Current-Occasional Tobacco Type: cigars Smoking risk assessment performed?: Yes Drug use: Never Substance use type: does not use Do you feel safe at home: Yes Do you feel safe in your relationship?: Yes Exam Const General: cooperative, healthy appearing and no acute distress Orientation: alert, awake and oriented x3 HENMT Head: normal to inspection Mouth: oral mucosae normal Eyes General: appearance normal, both eyes and all related structures Neck Neck: normal visual inspection Resp Effort & Inspection: normal respiratory effort and able to speak in complete sentences Cardio Rate: regular rate Skin General skin exam: no rashes or lesions noted Neuro General: patient alert, patient awake and patient oriented x3 Motor: muscle tone normal throughout Extrem Upper/lower leg/hip images: 1. Tenderness to palpation right anterior thigh. Thigh appears normal to inspection without edema, ecchymosis, erythema, crepitus or deformity. Other: There appears to be some mild edema right anterior and medial knee but no pain with range of motion in right knee or tenderness to palpation of right knee. There is no pain with range of motion to the right hip, specifically flexion, internal or external rotation. Pain in right thigh is reproducible while keeping knee extended and flexing at the hip lifting right leg. Right ankle and foot are nontender to palpation. Right DP/PT pulses intact. Psych Appearance: grossly normal Affect: normal affect Course Vital Signs Vital signs: Vital Signs Temperature 97.7 F 01/30/23 13:59 Pulse 64 01/30/23 13:59 Respiratory Rate 20 01/30/23 13:59 Blood Pressure 148/83 H 01/30/23 13:59 Pulse Oximetry 97 01/30/23 13:59 Temperature 97.7 F 01/30/23 13:59 Pulse 64 01/30/23 13:59 Respiratory Rate 20 01/30/23 13:59 Respiratory Effort Normal 01/30/23 14:03 Blood Pressure 148/83 H 01/30/23 13:59 Blood Pressure Position Sitting 01/30/23 13:59 Pulse Oximetry 97 01/30/23 13:59 Oxygen Delivery Method Room Air 01/30/23 13:59 Oxygen Flow Rate 0 01/30/23 13:59 Pain Level 8 01/30/23 13:59
[2023-01-30] MEDS: Ibuprofen 600 MG TAB PO (15:50)
[2023-01-30 18:00] VITALS: BP 164/90; PULSE 82; TEMP 36.7; O2SAT 95
== END 2023-01-30 17:55 | disposition home or self-care (01) ==
PROVIDERS: Emergency Provider Physician Assistant
DX: S76.811A Strain of other specified muscles, fascia and tendons at thigh level, right thigh, initial encounter (principal); X50.1XXA Overexertion from prolonged static or awkward postures, initial encounter
CPT/HCPCS: 29505; 73552; 99283

== ENCOUNTER 2023-08-30 11:56 | Outpatient (REF) | payer MEDICARE, BC, SELFPAY ==
[2023-08-30 21:31] LABS: HCT 41.6 % (40.0-50.0); HGB 14.1 g/dL (13.5-17.5); MCH 32.3 pg (27.0-33.0); MCHC 33.9 % (32.0-36.0); MCV 95 fL (80-95); Platelet Count 237 10^3/uL (130-400); RBC 4.37 10^6/uL (4.36-5.78); RDW 11.6 % (11.8-14.1); RDW-SD 40.4 fL; WBC 7.01 10^3/uL (4.4-10.8)
[2023-08-30 21:53] LABS: Anion Gap 9.1 mmol/L (3-11); BUN 14 mg/dL (7-18); CO2 26.9 mmol/L (21.0-32.0); CREATININE 0.8 mg/dL (0.70-1.30); Calcium 8.8 mg/dL (8.5-10.1); Chloride 103 mmol/L (98-107); Glucose 90 mg/dL (74-106); Sodium 139 mmol/L (136-145)
== END 2023-08-30 11:57 | disposition home or self-care (01) ==
LOC: LBN 11:56
PROVIDERS: Visit Provider Nurse Practitioner Family
DX: M79.89 Other specified soft tissue disorders (principal); L98.9 Disorder of the skin and subcutaneous tissue, unspecified
CPT/HCPCS: 80048; 85027

== ENCOUNTER → 2023-08-30 12:45 | Outpatient (CLI) | payer MEDICARE, BC, SELFPAY ==
--- NOTE | 2023-08-30 11:15 | DI.US_ITS ---
Exam(s) US LOWER EXTREMITY VENOUS LT EXAM: US LOWER EXTREMITY VENOUS LT CLINICAL HISTORY: evaluate DVT M79.89 SOFT TISSUE DISORDER R58 HEMORRHAGE TECHNIQUE: Grayscale, color, and doppler imaging of the deep venous system of the left lower extremi ty was performed. COMPARISON: No exams were available for comparison FINDINGS: There is no evidence of intraluminal thrombus and there is normal compression and augmentation demons trated within the common femoral vein, femoral vein, and popliteal vein. In the ipsilateral calf the interrogated veins also exhibit normal compression/ augmentation properti es. The ipsilateral saphenofemoral junction is patent. IMPRESSION: 1. No evidence of DVT in the left lower extremity. DATA REPOSITORY:
== END ==
PROVIDERS: Visit Provider Nurse Practitioner Family
DX: M79.89 Other specified soft tissue disorders (principal); R58 Hemorrhage, not elsewhere classified
CPT/HCPCS: 93971